=== PATIENT | female | born 2000 | race African-American/Black ===

== ENCOUNTER 2019-01-05 21:05 | Emergency (ER) | payer MEDICAID ==
[~2019-01-05] VITALS: Ht 149.9 cm; Wt 70.0 kg
[2019-01-05 22:50] LABS: CLARITY URINE CLEAR (CLEAR); COLOR URINE YELLOW (YELLOW); KETONES URINE NEGATIVE (NEGATIVE); LEUKOCYTE ESTERASE URINE 1+ (NEGATIVE); NITRITE URINE NEGATIVE (NEGATIVE); OCCULT BLOOD URINE 2+ (NEGATIVE); PROTEIN URINE NEGATIVE (NEGATIVE); SPECIFIC GRAVITY URINE 1.013 (1.005-1.030); UROBILINOGEN URINE 0.2 E.U./dL (0.2-1.0)
[2019-01-06] MEDS ORDERED: KETOROLAC 30MG/ML VIAL IV STA (01:10)
[2019-01-06 01:30] LABS: HEMATOCRIT. 34.3 % (36.0-48.0); HEMOGLOBIN. 11.2 g/dL (12.0-16.0); MEAN CORPUSCULAR HEMOGLOBIN 25.5 pg (28.0-32.0); MEAN CORPUSCULAR VOLUME 78.4 fL (81.0-99.0); MEAN PLATELET VOLUME 8.5 fl (7.4-10.4); PLATELET 242 x1000/uL (130-400); RED BLOOD CELL COUNT 4.38 mill/uL (4.2-5.4); RED CELL DISTRIBUTION WIDTH 15.6 % (11.6-14.6)
[2019-01-06 01:33] LABS: CHLORIDE 108 mEq/L (98-107)
[2019-01-06 02:44] LABS: PLATELET ESTIMATE NORMAL
[2019-01-06 05:08] VITALS: BP 99/54
== END 2019-01-06 05:15 | disposition home or self-care (01) ==
LOC: ER 21:05
DX: K80.20 Calculus of gallbladder without cholecystitis without obstruction (principal)
CPT/HCPCS: 36415; 76705; 80053; 81003; 81025; 83690; 85025; 96374; 99284; J1885